=== PATIENT | female | born 1970 | race Caucasian/White ===

== ENCOUNTER → 2023-08-26 11:06 | Outpatient (REF) | payer OTHER, SELFPAY | LOC: HWWDC 11:06 | PROVIDERS: ATTENDING PHYSICIAN Nurse Practitioner Family; FAMILY PHYSICIAN Family Medicine | DX: Z12.31 Encounter for screening mammogram for malignant neoplasm of breast (principal) | CPT/HCPCS: 77063; 77067 ==

== ENCOUNTER → 2023-11-13 11:54 | Outpatient (REF) | payer OTHER, SELFPAY ==
[2023-11-13 12:29] LABS: Sodium 134 mmol/L (135-145)
== END ==
LOC: REG 11:54
PROVIDERS: ATTENDING PHYSICIAN Nurse Practitioner Pediatrics
DX: E87.1 Hypo-osmolality and hyponatremia (principal)
CPT/HCPCS: 36415; 84295

== ENCOUNTER → 2023-11-14 10:41 | Outpatient (REF) | payer OTHER, SELFPAY | LOC: RCS 10:41 | PROVIDERS: ATTENDING PHYSICIAN Obstetrics & Gynecology Female Pelvic Medicine and Reconstructive Surgery; FAMILY PHYSICIAN Nurse Practitioner Family | DX: N39.3 Stress incontinence (female) (male) (principal); Z01.812 Encounter for preprocedural laboratory examination | CPT/HCPCS: 93005 ==

== ENCOUNTER 2024-07-02 11:46 | Emergency (ER) | payer SELFPAY ==
[2024-07-02 11:52] VITALS: BP 152/84
[2024-07-02 13:14] VITALS: BMI 23.6
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
[2024-07-02] MEDS: ZOFRAN ODT (ORALLY DISINTEGRATING) 4 MG PO (13:34)
[2024-07-02] MEDS: TYLENOL 650 MG PO (13:34)
[2024-07-02] MEDS: AUGMENTIN 875 MG/125 MG 1 TABLET PO (16:25)
[2024-07-02 16:48] VITALS: BP 137/85
--- NOTE | 2024-07-02 16:48 | EDRN ---
Reviewed discharge instructions with patient. Verbalized understanding. Ambulated with steady gait to the lobby.
== END 2024-07-02 16:40 | disposition home or self-care (01) ==
LOC: EMR 11:46
PROVIDERS: EMERGENCY PHYSICIAN Student in an Organized Health Care Education/Training Program; FAMILY PHYSICIAN Nurse Practitioner Family
DX: J01.20 Acute ethmoidal sinusitis, unspecified (principal); R51.9 Headache, unspecified; M25.611 Stiffness of right shoulder, not elsewhere classified; V49.40XA Driver injured in collision with unspecified motor vehicles in traffic accident, initial encounter; Y92.410 Unspecified street and highway as the place of occurrence of the external cause; Z88.6 Allergy status to analgesic agent; Z88.8 Allergy status to other drugs, medicaments and biological substances
CPT/HCPCS: 99284; 70450

== ENCOUNTER → 2025-01-25 15:05 | Outpatient (REF) | payer OTHER, SELFPAY | LOC: WDC 15:05 | PROVIDERS: ATTENDING PHYSICIAN Obstetrics & Gynecology Gynecology; FAMILY PHYSICIAN Student in an Organized Health Care Education/Training Program | DX: Z12.31 Encounter for screening mammogram for malignant neoplasm of breast (principal); Z13.820 Encounter for screening for osteoporosis | CPT/HCPCS: 77063; 77067; 77080 ==